=== PATIENT | female | born 1950 | race Caucasian/White ===

== ENCOUNTER 2021-11-26 08:18 | Outpatient (CLI) | payer MEDICARE, SELFPAY ==
[2021-11-26 13:39] LABS: Chloride* 102 mmol/L (96-114); Potassium* 4.7 mmol/L (3.6-5.1); Sodium* 136 mmol/L (135-149)
[2021-11-26 13:41] LABS: Cholesterol* 200 mg/dL (90-199)
[2021-11-26 13:42] LABS: Blood Urea Nitrogen* 12 mg/dL (7-30); Carbon Dioxide* 25 mmol/L (20-32); Creatinine* 0.8 mg/dL (0.5-1.5); Estimated Glomerular Filt Rate 80 ml/min; Glucose* 92 mg/dL (60-115)
[2021-11-26 13:43] LABS: Calcium* 9.8 mg/dL (8.4-10.6); HDL Cholesterol* 93 mg/dL (>=50); LDL Cholesterol Calculated 90 mg/dL (<100); Triglycerides* 86 mg/dL (40-149)
== END 2021-11-26 08:19 | disposition home or self-care (01) ==
PROVIDERS: PCP Family Medicine; Visit Provider Family Medicine
DX: Z00.00 Encounter for general adult medical examination without abnormal findings (principal); I10 Essential (primary) hypertension; Z13.6 Encounter for screening for cardiovascular disorders
CPT/HCPCS: 80048; 80061

== ENCOUNTER 2022-09-05 09:44 | Outpatient (CLI) | payer MEDICARE, SELFPAY | END 2022-09-05 09:45 | disposition home or self-care (01) | LOC: NFLDREF 09-09 15:35 | PROVIDERS: PCP Family Medicine; Referring Provider Family Medicine; Visit Provider Family Medicine | DX: N39.0 Urinary tract infection, site not specified (principal); Z13.89 Encounter for screening for other disorder | CPT/HCPCS: 87086 ==

== ENCOUNTER 2023-05-25 09:31 | Outpatient (CLI) | payer MEDICARE, SELFPAY | END 2023-05-25 09:32 | disposition home or self-care (01) | LOC: NFLDREF 15:29 | PROVIDERS: PCP Family Medicine; Referring Provider Family Medicine; Visit Provider Family Medicine | DX: N30.00 Acute cystitis without hematuria (principal); B96.20 Unspecified Escherichia coli [E. coli] as the cause of diseases classified elsewhere | CPT/HCPCS: 87086; 87186 ==

== ENCOUNTER 2023-09-28 13:46 | Outpatient (CLI) | payer MEDICARE, SELFPAY ==
--- NOTE | 2023-09-28 13:40 | MM_ITS ---
Patient: HAILY MCGEE Facility:?[facility] Patient ID:?[id number] Site Patient ID:?[id number] Site :?[id number] Study:?XRay-Breast Bilateral 3D W/CAD-09/28/2023 1:30:00 PM Ordering Physician:Aubrey Final Report: BILATERAL SCREENING MAMMOGRAM WITH COMPUTER-AIDED DETECTION AND TOMOSYNTHESIS TECHNIQUE: CC and MLO views were obtained. These mammographic images have been obtained using full-field digital technique. These mammographic images were interpreted with the benefit of computer-aided detection. Breast Tomosynthesis was used in this interpretation. COMPARISON FILM: 09/25/22, 08/06/21, 04/18/20. FINDINGS: There are scattered areas of fibroglandular density. IMPRESSION: There is no radiographic evidence for malignancy. ASSESSMENT: BI-RADS Category 1: Negative RECOMMENDATION: Routine screening mammogram in 1 year. A lay language report of this examination will be provided to the patient. Antonio Lance M.D. Diagnostic Radiologist [email or web address]/sp R& Transcribed: 5:42 p.m. SP/Dictated by: Antonio Lance MD @ 09/30/2023 8:52:00 AM Signed by:?Antonio Lance MD @09/30/2023 5:45:19 PM (Electronic Signature)
== END 2023-09-28 13:47 | disposition home or self-care (01) ==
LOC: MAMMO 13:46
PROVIDERS: PCP Family Medicine; Visit Provider Family Medicine
DX: Z12.31 Encounter for screening mammogram for malignant neoplasm of breast (principal)
CPT/HCPCS: 77063; 77067

== ENCOUNTER 2024-11-01 13:28 | Outpatient (CLI) | payer MEDICARE, SELFPAY | END 2024-11-01 13:29 | disposition home or self-care (01) | LOC: LKVREF 13:28 | PROVIDERS: PCP Family Medicine; Visit Provider Family Medicine | DX: R30.0 Dysuria (principal) | CPT/HCPCS: 87086 ==

== ENCOUNTER 2024-11-28 08:29 | Outpatient (CLI) | payer MEDICARE, SELFPAY ==
--- NOTE | 2024-11-28 08:45 | CRLHL7_ITS ---
For Patients: As a result of the Century Cures Act, medical imaging exams and procedure reports are released immediately into your electronic medical record. You may view this report before your referring provider. If you have questions, please contact your health care provider. INDICATION: BILATERAL SCREENING MAMMOGRAM, ASYMPTOMATIC 74 Y/O FEMALE COMPARISON: 09/28/2023, 09/25/2022, 08/06/2021 TECHNIQUE: Digital mammogram in CC and MLO projections including computer-aided detection (CAD) and tomosynthesis. BREAST COMPOSITION: There are scattered areas of fibroglandular density. FINDINGS: No suspicious findings. ASSESSMENT: BI-RADS 1 Negative RECOMMENDATION: Annual screening mammogram. A lay language report of this examination will be provided to the patient. Dictated by: Vanessa Morgan MD @ 12/01/2024 07:46:52 (Electronically Signed)
== END 2024-11-28 08:30 | disposition home or self-care (01) ==
LOC: MAMMO 08:30
PROVIDERS: PCP Family Medicine; Visit Provider Family Medicine
DX: Z12.31 Encounter for screening mammogram for malignant neoplasm of breast (principal)
CPT/HCPCS: 77063; 77067